=== PATIENT | female | born 1970 | race Caucasian/White ===

== ENCOUNTER 2023-09-01 09:40 | Emergency (ER) | payer BC, OTHER, SELFPAY ==
[2023-09-01 09:52] VITALS: BP 164/100
[2023-09-01 10:26] LABS: % Basophils 0.5 % (0-2); % Eosinophils 1.7 % (0-6); % Immature Granulocytes 0.2 % (0-0.5); % Lymphocytes 37.8 % (20.5-51.1); % Monocytes 4.7 % (1.7-9.3); % Neutrophils 55.1 % (42.2-75.2); Absolute Eosinophils 0.1 10^3/uL (0-0.7); Absolute Lymphocytes 2.2 10^3/uL (1.2-3.4); Absolute Monocytes 0.3 10^3/uL (0.1-0.6); Absolute Neutrophils 3.2 10^3/uL (1.4-6.5); Hematocrit 38.5 % (37.0-47.0); Hemoglobin 13.1 g/dL (12.0-16.0); Mean Corpuscular Hgb 29.1 pg (27.0-31.0); Mean Corpuscular Volume 85.6 fL (81.0-99.0); Mean Platelet Volume 10.1 fL (7.4-10.4); Nucleated Red Blood Cells % 0 %; Platelet Count 243 10^3/uL (130-400); Red Cell Dist. Width 12.2 % (11.5-14.5); White Blood Cell Count 5.8 10^3/uL (4.8-10.8)
[2023-09-01 10:42] LABS: ALT (SGPT) 27 U/L (0-35); AST (SGOT) 27 U/L (14-36); Albumin 3.9 g/dl (3.5-5.0); Alkaline Phosphatase 106 U/L (38-126); Blood Urea Nitrogen 27 mg/dl (7-17); Carbon Dioxide 25 mmol/L (22-30); Chloride 107 mmol/L (98-107); Glucose 115 mg/dl (70-99); Potassium 4.2 mmol/L (3.5-5.1); Sodium 137 mmol/L (135-145); Total Bilirubin 0.7 mg/dl (0.2-1.3); Total Protein 6.6 g/dl (6.3-8.2); eGFR > 60.00
[2023-09-01 11:04] VITALS: BMI 38.7
[2023-09-01] MEDS: ANCEF 10 IV (12:47)
--- NOTE | 2023-09-01 13:07 | ED.GENMED ---
History of Present Illness
General
Chief Complaint: Skin Problem
Source: patient
Exam Limitations: none
Time Seen by Provider: 09/01/23 11:02
Travel History
Have you had any contact with someone who has COVID-19?: No
Do you have any symptoms of coronavirus? Fever > 100 degrees, chills, cough, shortness of breath, sore throat, loss of taste or smell, muscle aches, or headache?: No
History of Present Illness
History of Present Illness:
53-year-old insulin-dependent diabetic gastric bypass patient smoker presents complaining of nonhealing wound to the dorsal aspect of the right second toe. She has Charcot foot as well. Is been ongoing for months. She went to see podiatry today
however she missed her appointment and was sent here for evaluation. She denies fever. She does note pain to the toe. 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 Is on her feet a lot at work.
Past History
Past History
ED Past Medical History: IDDM
ED Past Surgical History: Other (Gastric bypass)
Social History
Tobacco: Smoker
Alcohol: None
Drug: None
Personal:
Living: with family
Employment: Employed
Family History
Family History: Diabetes
Phy Exam
Physical Exam
Physical Exam:
General: Well appearing female NAD
HEENT: NC/AT
Heart: RRR, no murmurs
Lungs: CTA bilaterally
Skin: Half a centimeter wound dorsal aspect right second toe at the level of the PIP joint. There is macerated skin around the wound edge. There is subtle erythema to spread proximally into the base of the toe. No lymphangitic streaking. No
drainage. No foul odor
Vascular: 2+ dorsalis pedis pulse right foot
Extremities: No cyanosis
Course
Orders/Labs/Results
Orders:
Orders
09/01/23 09:58
Toes 2 Views, Right [CR Toe(s) Min 2 Vw Right] Urgent
Comment:
Reason For Exam: wound, pain
Indicate Which Toe:: Second
09/01/23 10:07
Complete Blood Count/With Diff Urgent
Comprehensive Metabolic Panel Urgent
09/01/23 12:06
CeFAZolin 2 GRAM [Ancef] 2 grams in 10 ml IV NOW
Abnormal Lab Results
09/01/23
10:07
BUN 27 H mg/dl
(7-17)
Glucose 115 H mg/dl
(70-99)
09/01/23 10:07
09/01/23 10:07
Vital Signs
Initial and Last Documented VS:
Initial Vital Signs
Temp Pulse Resp BP Pulse Ox
98.2 F 84 20 164/100 97
09/01/23 09:52 09/01/23 09:52 09/01/23 09:52 09/01/23 09:52 09/01/23 09:52
Last Documented Vital Signs
Temp Pulse Resp BP Pulse Ox
98.2 F 84 20 164/100 97
09/01/23 09:52 09/01/23 09:52 09/01/23 09:52 09/01/23 09:52 09/01/23 09:52
MDM/Problems Addressed
Differential Diagnosis Includes:
Diabetic foot wound. Question possible early cellulitis. Consider osteomyelitis. X-rays of the right foot were obtained which were negative for acute osteomyelitis. Labs reviewed with a normal white count. Exam is quite benign other than subtle
erythema of the toe. She has good capillary refill to the toe. Discussed treatment options. She is at risk given her other medical issues and considered admission to hospital however at this point patient declined admission but was given a dose
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 Return precautions were given
*Critical Care Note
Total Time (30-74mins, 75-104mins- exclusive of procedures): Not Applicable
ED Attending Note
-
Portions of this chart may have been created with voice recognition software.� Occasional wrong word or��sound alike� substitutions may have occurred due to the inherent limitations of voice recognition software.
Discharge Plan
Departure
Patient Disposition: Home (Routine Discharge)
Date of Disposition: 09/01/23
Time of Disposition: 13:17
Patient with high blood pressure during this ER visit?: No
Discharge Problem:
Diabetic toe ulcer
Instructions: Cellulitis (Skin Infection), Adult (DC)
Prescriptions:
New
cephalexin 500 mg capsule
500 mg PO Q6H 7 Days Qty: 28 0RF
No Action
gabapentin 600 mg tablet
1,800 mg PO TID
ondansetron HCl 4 mg tablet
4 mg PO Q8HPRN PRN (Reason: nausea/vomiting)
pantoprazole 40 mg tablet,delayed release (DR/EC)
40 mg PO Q48H
naproxen sodium [Aleve] 220 mg Capsule
440 mg PO DAILY
lidocaine 5 % Cream
1 applic TOPICAL BID PRN (Reason: both ankles)
acetaminophen [Tylenol] 325 mg Tablet
650 mg PO DAILY
phentermine 37.5 mg Tablet
37.5 mg PO DAILY
spironolactone 25 mg Tablet
25 mg PO DAILY
ergocalciferol (vitamin D2) 1,250 mcg (50,000 unit) Capsule
1,250 mcg PO WE
Referrals:
Jose Hodges DO [Family Provider] -
Activity Restrictions/Additional Instructions:
Take antibiotics as directed. Follow-up with podiatry. Please return here for increasing pain redness red streaks fever or other concerning finding
Interventions
Interventions:
ED- Fall Risk Assessment Last Done: 09/01/23 11:00
*ED COVID-19 Vaccine History Last Done: 09/01/23 09:52
ED-Skin Assessment Last Done: 09/01/23 11:00
Discharge Date and Time
Print Language: GEORGIAN
== END 2023-09-01 13:39 | disposition home or self-care (01) ==
LOC: EMR 09:40
PROVIDERS: EMERGENCY PHYSICIAN Emergency Medicine; FAMILY PHYSICIAN Family Medicine
DX: E11.621 Type 2 diabetes mellitus with foot ulcer (principal); F17.200 Nicotine dependence, unspecified, uncomplicated; Z89.422 Acquired absence of other left toe(s)
CPT/HCPCS: 99284; 96374; 73660; 80053; 85025